=== PATIENT | male | born 1955 ===

== ENCOUNTER 2018-12-17 07:43 | Emergency (ER) | payer OTHER ==
--- NOTE | 2018-12-17 08:58 | ED PDOC ---
Lower Extremity Pain/Injury Time Seen by Provider: 12/17/18 07:56 Chief Complaint (Nursing): Lower Extremity Problem/Injury Chief Complaint (Provider): Lower Extremity Problem/Injury History Per: Patient History/Exam Limitations: no limitations Onset/Duration Of Symptoms: Other (1 month) Additional Complaint(s): 63 y/o male presents to the ED complaining of left leg pain thats been ongoing for 1 month. Patient states he did not take anything for the pain and did have a few drinks last night. Patient denies any trauma. PMD: none provided Past Medical History Reviewed: Historical Data, Nursing Documentation, Vital Signs Vital Signs: Last Vital Signs Temp 97.9 F 12/17/18 07:47 Pulse 69 12/17/18 07:47 Resp 16 12/17/18 07:47 BP 128/77 12/17/18 07:47 Pulse Ox 100 12/17/18 07:47 Primary Care Provider: FAMILY PROVIDER,NO - Social History Alcohol: Social - Home Medications Home Medications: Ambulatory Orders Medication Instructions Recorded Ibuprofen [Motrin] 600 mg PO Q6H PRN #20 tab 12/17/18 - Allergies Allergies/Adverse Reactions: Allergies Allergy/AdvReac Type Severity Reaction Status Date / Time No Known Allergies Allergy Verified 12/17/18 07:52 Review of Systems ROS Statement: Except As Marked, All Systems Reviewed And Found Negative Musculoskeletal: Positive for: Leg Pain (Left) Physical Exam - Reviewed Nursing Documentation Reviewed: Yes Vital Signs Reviewed: Yes - Physical Exam Extremity: Positive for: Normal ROM, Tenderness (Left leg mild tender laterally; Ankle to thigh.), Other (No erythema, induration, and ecchymosis. Sensation intact. 2+ pd impulse. ). Negative for: Pedal Edema, Deformity - ECG O2 Sat by Pulse Oximetry: 100 Medical Decision Making Medical Decision Making: Time:812 Impression: Left leg injury Plan: -Ultrasound Scribe Attestation: Documented by Tasha Weinberg, acting as a scribe for Dorota Williamson Provider Scribe Attestation: All medical record entries made by the Scribe were at my direction and personally dictated by me. I have reviewed the chart and agree that the record accurately reflects my personal performance of the history, physical exam, medical decision making, and the department course for this patient. I have also personally directed, reviewed, and agree with the discharge instructions and disposition. Disposition - Clinical Impression Clinical Impression: Leg pain - Disposition Referrals: [facility] [Outside] Disposition: Routine/Home Disposition Time: 10:00 Condition: STABLE Prescriptions: Ibuprofen [Motrin] 600 mg PO Q6H PRN #20 tab PRN Reason: Pain, Moderate (4-7) Instructions: Lower Extremity Muscle Strain Forms: [facility] (French) Print Language: AUSTRALIAN
--- NOTE | 2018-12-17 09:30 | US ---
Date of service: 12/17/2018 HISTORY: Leg pain. PRIORS: None. FINDINGS: 2-D, color and duplex Doppler analysis of the lower extremity venous circulation using routine protocol from the femoral veins through the popliteal veins. Venous compressibility: Normal. Flow and augmentation patterns: Normal. Visualized veins upper third of calf: Normal. Leggett cyst: None. IMPRESSION: No sonographic or Doppler evidence for DVT in left lower extremity.
[2018-12-17 11:23] VITALS: BP 126/63; PULSE 60; RESP 18; TEMP 98.1; O2SAT 99
== END 2018-12-17 11:21 | disposition home or self-care (01) ==
LOC: H.ER 07:43
DX: M79.605 Pain in left leg (principal)